=== PATIENT | male | born 1975 | race Caucasian/White ===

== ENCOUNTER → 2017-11-29 11:56 | Outpatient (CLI) | payer BC, SELFPAY ==
[2017-11-29 12:13] LABS: Phosphorus 3.6 mg/dL (2.5-4.9)
== END ==
PROVIDERS: Family Provider Student in an Organized Health Care Education/Training Program; PCP Student in an Organized Health Care Education/Training Program; Visit Provider Internal Medicine Hematology & Oncology
DX: C78.02 Secondary malignant neoplasm of left lung (principal); C20 Malignant neoplasm of rectum
CPT/HCPCS: 84100

== ENCOUNTER → 2019-01-30 16:12 | Outpatient (CLI) | payer MEDICAID, SELFPAY ==
[2017-03-12 20:06] VITALS: BMI 38.5
--- NOTE | 2019-01-30 10:15 | ASPSI_PTH ---
PATIENT: CARLEY KNIGHT LOC: [facility] U#:[id number] AGE/SX: 50/M ROOM: RE01/30/[address]: Dr. Violetta Pruitt MD : [id number] BED: DIS: SPEC #: [id number] RECD: 01/31/19 16:08 STATUS: YASIR ASHLEY #: [id number] CLIFFORD: 01/30/19 10:[address]: Violetta Pruitt DEPT: CYTOLOGY RECD BY: Melissa Waters ENTERED: 02/02/19 09:57 SP TYPE: FELIPE HEBERT DR: Dr. Jeremias Rivera DO Tissues: A - Thyroid gland, NOS B - Thyroid gland, NOS Procedures: Surgery Specimen Level IV Cytospin Fluid Cytology Other HEADER OPERATION: Ultrasound guided fine needle aspiration, right thyroid PRE-OP DIAGNOSIS: Right thyroid nodule TISSUE SUBMITTED: A. FNA right thyroid for cytology, B. FNA right thyroid slides x6 DIAGNOSIS CYTOLOGY A. Right thyroid fluid for cytology, ultrasound-guided FNA (cytospin and cell block): A few benign follicular cells and macrophages are noted. B. Right thyroid nodule, ultrasound-guided FNA (smears): Consistent with benign follicular nodule with focal cystic changes. Adequate for evaluation. See cytology study and comment. SJ:rg 02/03/19 COMMENT Correlation with clinical, radiologic findings and appropriate follow up are necessary. CYTOLOGY STUDY Slides are reviewed. B. The specimen consists of benign follicular cells and macrophages. CYTOLOGY GROSS A - Received is 30 ml of pale brown fluid labeled with the patient's name and and designated per the requisition as FNA right thyroid. Submitted for cytology preparation including cell block. B - Received are 6 smears labeled with the patient's name and designated per the requisition as FNA right thyroid. Submitted for staining. 02/02/19 TC:5 CPT: 32121, 63121, 52441
== END ==
PROVIDERS: Family Provider Student in an Organized Health Care Education/Training Program; PCP Student in an Organized Health Care Education/Training Program; Referring Provider Surgery; Visit Provider Surgery
DX: E04.1 Nontoxic single thyroid nodule (principal)
CPT/HCPCS: 88108; 88161; 88305

== ENCOUNTER → 2019-06-05 08:36 | Outpatient (CLI) | payer MEDICAID, SELFPAY ==
[2019-06-05] MEDS: Cosyntropin 0.25 MG Vial IM (09:05)
[2019-06-05 09:12] VITALS: BP 135/90; PULSE 52; RESP 18; TEMP 36.6; O2SAT 100; BMI 40.4
== END ==
PROVIDERS: Family Provider Student in an Organized Health Care Education/Training Program; PCP Student in an Organized Health Care Education/Training Program; Referring Provider Student in an Organized Health Care Education/Training Program; Visit Provider Student in an Organized Health Care Education/Training Program
DX: R63.4 Abnormal weight loss (principal); R63.1 Polydipsia; E04.9 Nontoxic goiter, unspecified
CPT/HCPCS: 36591; 82533; 96372; A4216; J0834